=== PATIENT | female | born 1970 | race Caucasian/White ===

== ENCOUNTER 2017-01-09 13:27 | Inpatient (IN) | payer OTHER ==
--- NOTE | ~2017-01-09 | PN ---
Unit #: [id number] #: [id number] Patient: MU NGUYEN [id number] [facility] [address] [place] [address] [id number] I MR#: [id number] NAME: MU NGUYEN. ROOM: P256 Age: 46 Sex: F Admission Date: 01/09/2017 : 1970 Attending Physician: Kandis Madrigal M.D. Admitting Physician: Kandis Madrigal M.D. Primary Care Physician: Generic Doctor Not In System [facility] PROGRESS NOTES DATE OF SERVICE: 01/15/2017 SUBJECTIVE Ms. Nguyen is a 46-year-old white female, who was seen today and chart was reviewed and the case was discussed with the staff. She has been anxious, withdrawn, depressed, and seclusive to herself and reports not feeling good and has been complaining of persistent depressive symptoms with feelings of hopelessness and suicidal ideations and stated that she does not feel safe, "if I want to get out of here today, I will probably end up hanging myself." MENTAL STATUS EXAMINATION Middle-aged white female, who was casually dressed with fair personal hygiene, appears to be in no acute distress or discomfort. She was awake and alert on interaction with intact orientation. Her mood was anxious and depressed with a congruent affect. Her speech was slow and goal directed. She reports having suicidal ideation. Her insight and judgment remain slightly impaired. TREATMENT PLAN 1. We will continue her on her current medications and treatment protocol. We will monitor her response to the medications and make further adjustments as needed. 2. We will continue to follow up. Dictated by... Costa Ambriz/sonja TD: 01/15/2017 15:18 JOB #: [id number] Unit #: [id number] #: [id number] Patient: MU NGUYEN [facility] PROGRESS NOTES X Kandis Madrigal MD PROGRESS NOTE
--- NOTE | ~2017-01-09 | PN ---
Unit #: [id number] #: [id number] Patient: MU NGUYEN [id number] [facility] [address] [place] [address] [id number] I MR#: [id number] NAME: MU NGUYEN ROOM: P256 Age: 46 Sex: F Admission Date: 01/09/2017 : 1970 Attending Physician: Kandis Madrigal M.D. Admitting Physician: Kandis Madrigal M.D. Primary Care Physician: Generic Doctor Not In System [facility] PROGRESS NOTES DATE OF SERVICE: 01/17/2017 SUBJECTIVE Ms. Nguyen is a 46-year-old white female, who was seen today and chart was reviewed and the case was discussed with the staff. She reports in fact that she is showing improvement in her depression and anxiety and she has been compliant with her treatment recommendations and has been taking the medications and tolerating them fairly well. MENTAL STATUS EXAMINATION Middle-aged white female, who was casually dressed with fair personal hygiene, appears to be in no acute distress or discomfort. She was awake and alert on interaction with intact orientation. Her mood was anxious with a congruent affect. She denies any suicidal or homicidal ideation. Her insight and judgment remain slightly impaired. TREATMENT PLAN 1. We will continue her on her current medications and treatment protocol. We will monitor her response to the medications and make further adjustments as needed. 2. We will continue to follow up. Dictated by... Costa Ambriz/sonja TD: 01/17/2017 14:55 JOB #: [id number] [facility] PROGRESS NOTES X Kandis Madrigal MD PROGRESS NOTE
--- NOTE | ~2017-01-09 | PA ---
Unit #: [id number] #: [id number] [facility]: [facility] [id number] [facility] [address] [place] [address] [id number] I MR#: [id number] NAME: MU NGUYEN ROOM: P265 Age: 46 Sex: F Admission Date: 01/09/2017 : 1970 Date of Assessment: 01/09/2017 Attending Physician: Kandis Madrigal M.D. Admitting Physician: Kandis Madrigal M.D. Primary Care Physician: Generic Doctor Not In System PSYCHIATRIC ASSESSMENT DATE OF SERVICE 01/09/2017. IDENTIFYING DATA Ms. Nguyen is a 46-year-old white female, who is known to us from previous encounter, is a resident of [place], [place] and was recently discharged from my care and was self-referred back to the hospital. CHIEF COMPLAINT "I'm feeling anxious and I'm suicidal." HISTORY OF PRESENT ILLNESS Ms. Nguyen is a 46-year-old white female, who was self-referred to the hospital. Upon presentation, she reported increasing depression, anxiety, feelings of hopelessness and helplessness, and suicidal ideation and reports that she has been having thoughts of hanging herself. She reports that she has been diagnosed with cancer and has 30 days to live, though I do not believe that that information is correct; however, she informed me that she was unable to get her prescription filled after getting out of the hospital as pharmacy told her that there was some mess up with her insurance and they are trying to fix it and she reports that she was unable to come to the outpatient treatment program because her transportation never picked her up, and meanwhile, she started decompensating and now reports increasing depression and suicidal ideation, and as such, a recommendation for inpatient level of care was made and the patient was transferred to us. SUBSTANCE ABUSE HISTORY The patient denies any alcohol or drug abuse. PAST PSYCHIATRIC HISTORY The patient has had a [facility], and review of the medical records indicate that she is supposed to be on a combination of Seroquel, Neurontin, Effexor, and Minipress, though appears to be noncompliant with her medications. PAST MEDICAL HISTORY No acute or chronic medical illnesses. ALLERGIES Sulfa and codeine. Unit #: [id number] #: [id number] Patient: MU NGUYEN PERSONAL AND SOCIAL HISTORY A 46-year-old white female, who reports that she is , single, unemployed, and lives with a roommate and has poor social support system. MENTAL STATUS EXAMINATION Middle-aged white female, who was casually dressed with fair personal hygiene, appears to be in no acute distress or discomfort. She was awake and alert on interaction with intact orientation to time, place, and person. Her mood was anxious and depressed with a congruent affect. Her speech was slow and goal directed. She reports having suicidal ideation, but denies any homicidal ideations and also denies any auditory or visual hallucinations. Her insight and judgment remain significantly impaired. DIAGNOSTIC IMPRESSION Psychiatric: Major depressive disorder, recurrent, moderate, without psychotic features; generalized anxiety disorder; and posttraumatic stress disorder. Medical: None. Stressors: Moderate psychosocial stressors. TREATMENT PLAN 1. The patient has presented with a history of mood disorder and has been decompensating and will need inpatient hospitalization for safety and stabilization. We will start her back on her home medications. We will adjust the medications and monitor response. 2. Supportive therapy was provided to the patient. 3. Safe, structured, and nourishing environment will be provided. ESTIMATED LENGTH OF STAY 5 to 7 days. ABILITY TO HELP SELF Limited. WILLINGNESS TO HELP SELF The patient appears to be willing to help self. STRENGTHS 1. Communicative. 2. Cooperative. PROBLEMS 1. Chronic dysphoric symptoms. 2. Poor social support system. DISCHARGE CRITERIA This will be contingent upon the patient's ability to show resolution of her depression and anxiety and her ability to stay safe to herself, particularly after discharge from the hospital. Dictated by... Costa Ambriz/sonja TD: 01/10/2017 15:09 JOB #: [id number] Unit #: [id number] #: [id number] Patient: MU NGUYEN PSYCHIATRIC ASSESSMENT X Kandis Madrigal MD PSYCHIATRIC ASSESSMENT
--- NOTE | ~2017-01-09 | PN ---
Unit #: [id number] #: [id number] Patient: MU NGUYEN [id number] [facility] [address] [place] [address] [id number] I MR#: [id number] NAME: MU NGUYEN ROOM: P256 Age: 46 Sex: F Admission Date: 01/09/2017 : 1970 Attending Physician: Kandis Madrigal M.D. Admitting Physician: Kandis Madrigal M.D. Primary Care Physician: Generic Doctor Not In System [facility] PROGRESS NOTES DATE OF SERVICE: 01/13/2017 SUBJECTIVE Ms. Nguyen is a 46-year-old white female, who was seen today and chart was reviewed and the case was discussed with the staff. She has been anxious, withdrawn, and seclusive to herself and reports not feeling good and has been complaining of persistent anxiety, though she has been taking the medications and tolerating them fairly well. MENTAL STATUS EXAMINATION Middle-aged white female, who was casually dressed with fair personal hygiene, appears to be in no acute distress or discomfort. She was awake and alert on interaction with intact orientation. Her mood was anxious and depressed with a congruent affect. She denies any suicidal or homicidal ideations. Her insight and judgment remain slightly impaired. TREATMENT PLAN 1. We will continue her on her current medications and treatment protocol. We will monitor her response and make further adjustments as needed. 2. We will continue to follow up. Dictated by... Costa Ambriz/sonja TD: 01/14/2017 10:17 JOB #: [id number] [facility] PROGRESS NOTES X Kandis Madrigal MD PROGRESS NOTE
--- NOTE | ~2017-01-09 | PN ---
Unit #: [id number] #: [id number] Patient: MU NGUYEN [id number] [facility] [address] [place] [address] [id number] I MR#: [id number] NAME: MU NGUYEN ROOM: P256 Age: 46 Sex: F Admission Date: 01/09/2017 : 1970 Attending Physician: Kandis Madrigal M.D. Admitting Physician: Kandis Madrigal M.D. Primary Care Physician: Generic Doctor Not In System [facility] PROGRESS NOTES DATE OF SERVICE: 01/12/2017 SUBJECTIVE Ms. Nguyen is a 46-year-old white female who was seen today and chart was reviewed, and case was discussed with the staff. She reports not feeling good and unable to sleep all night long due to back pain and does report some anxiety, depression, mood swings, irritability. Meanwhile, she has been compliant with treatment recommendations and has been taking medications and tolerating them fairly well. MENTAL STATUS EXAMINATION Middle-aged white female who was casually dressed with fair personal hygiene, appears to be in slight distress or discomfort. She was awake and alert on interaction with intact orientation. Her mood was anxious with a congruent affect. She denies any suicidal or homicidal ideations, and also denies any auditory or visual hallucinations. Her insight and judgment remain slightly impaired. TREATMENT PLAN 1. We will continue on her current medications and treatment protocol. We will monitor her response to the medications and make further adjustments as needed. 2. We will continue to follow up. Dictated by... Costa Ambriz/sonja TD: 01/14/2017 06:46 JOB #: [id number] [facility] PROGRESS NOTES X Kandis Madrigal MD PROGRESS NOTE
--- NOTE | ~2017-01-09 | PN ---
Unit #: [id number] #: [id number] Patient: MU NGUYEN [id number] [facility] [address] [place] [address] [id number] I MR#: [id number] NAME: MU NGUYEN. ROOM: P256 Age: 46 Sex: F Admission Date: 01/09/2017 : 1970 Attending Physician: Kandis Madrigal M.D. Admitting Physician: Kandis Madrigal M.D. Primary Care Physician: Generic Doctor Not In System [facility] PROGRESS NOTES DATE January 14, 2017 DISCUSSION Ms. Nguyen is a 46-year-old white female, who was seen today and chart was reviewed and the case was discussed with the staff. She has been anxious, withdrawn, and rather seclusive to herself. Meanwhile, she has been cooperative with the treatment recommendations and she has been taking the medications and tolerating them fairly well with no reported side effects. MENTAL STATUS EXAMINATION Middle-aged white female, who was casually dressed with fair personal hygiene and appears to be in no acute distress or discomfort. She was awake and alert on interaction with intact orientation. Her mood was anxious with a congruent affect. Her speech is slow and goal-directed. She denies any suicidal or homicidal ideations, and also denies any auditory or visual hallucinations. Her insight and judgment remain slightly impaired. TREATMENT PLAN 1. We will continue her on her current medications and treatment protocol, and will monitor her response to the medications, and make further adjustments as needed. 2. We will continue to followup. Dictated by... Costa Ambriz/penelope TD: 01/15/2017 12:40 JOB #: [id number] Unit #: [id number] #: [id number] Patient: MU NGUYEN [facility] PROGRESS NOTES X Kandis Madrigal MD PROGRESS NOTE
--- NOTE | ~2017-01-09 | CO ---
Unit #: [id number] #: [id number] Patient: MU NGUYEN [id number] [place] [address] [id number] I MR#: [id number] NAME: MU NGUYEN ROOM: P256 Age: 46 Sex: F Admission Date: 01/09/2017 : 1970 Attending Physician: Kandis Madrigal M.D. Consultation Date: 01/11/2017 CONSULTATION REPORT SUBJECTIVE Nahed is a 46-year-old with a history of hemorrhoids. She reports that she is having some pain and itching in the area. We have been asked to assess and treat. ASSESSMENT The patient gives a history of hemorrhoids. PLAN Preparation H b.i.d. x5 days. Dictated by... Carmenza Castañeda P.A.-C. for Costa Arredondo/sonja TD: 01/16/2017 02:48 JOB #: [id number] CONSULTATION REPORT X Carmenza Castañeda CONSULTATION REPORT
--- NOTE | ~2017-01-09 | PN ---
Unit #: [id number] #: [id number] Patient: MU NGUYEN [id number] [facility] [address] [place] [address] [id number] I MR#: [id number] NAME: MU NGUYEN ROOM: P256 Age: 46 Sex: F Admission Date: 01/09/2017 : 1970 Attending Physician: Kandis Madrigal M.D. Admitting Physician: Kandis Madrigal M.D. Primary Care Physician: Generic Doctor Not In System [facility] PROGRESS NOTES DATE 01/16/2017 DISCUSSION Ms. Nguyen is a 46-year-old white female who was seen today and chart was reviewed and case was discussed with the staff. She has been anxious, withdrawn though has not shown any agitation, irritability and has been cooperative with treatment recommendation though has been reporting some persistent anxiety and depressive symptoms. MENTAL STATUS EXAMINATION Middle-aged white female who was casually dressed with fair personal hygiene, appears to be in no acute distress or discomfort. She was awake and alert with impaired attention and concentration. Her mood was anxious with congruent affect. She denies any suicidal or homicidal ideations. Her insight and judgement remains slightly impaired. TREATMENT PLAN We will continue her on her current treatment protocol. We will monitor her response and make further adjustments as needed. Dictated by... Costa Ambriz/guillermina TD: 01/18/2017 03:17 JOB #: [id number] [facility] PROGRESS NOTES X Kandis Madrigal MD PROGRESS NOTE
--- NOTE | ~2017-01-09 | PN ---
Unit #: [id number] #: [id number] Patient: MU NGUYEN [id number] [facility] [address] [place] [address] [id number] I MR#: [id number] NAME: MU NGUYEN ROOM: P177 Age: 46 Sex: F Admission Date: 01/09/2017 : 1970 Attending Physician: Kandis Madrigal M.D. Admitting Physician: Kandis Madrigal M.D. Primary Care Physician: Generic Doctor Not In System [facility] PROGRESS NOTES DATE OF SERVICE: 01/10/2017 SUBJECTIVE Ms. Nguyen is a 46-year-old white female who was seen today and chart was reviewed, and case was discussed with the staff. She has been anxious, withdrawn, depressed, and rather seclusive to herself. Meanwhile, she has been cooperative with treatment recommendations and has been taking the medications and tolerating them fairly well. MENTAL STATUS EXAMINATION Middle-aged white female who was casually dressed with fair personal hygiene, appears to be in no acute distress or discomfort. She was awake and alert with intact orientation. Her mood was anxious with a congruent affect. She reports having suicidal ideations, but denies any homicidal ideations. Her insight and judgment remain slightly impaired. TREATMENT PLAN 1. We will continue on her current treatment protocol. We will monitor her response to medications and make further adjustments as needed. 2. We will continue to follow up. Dictated by... Costa Ambriz/sonja TD: 01/12/2017 03:10 JOB #: [id number] [facility] PROGRESS NOTES X Kandis Madrigal MD PROGRESS NOTE
--- NOTE | ~2017-01-09 | PN ---
Unit #: [id number] #: [id number] Patient: MU NGUYEN [id number] [facility] [address] [place] [address] [id number] MR#: [id number] NAME: MU NGUYEN. ROOM: P256 Age: 46 Sex: F Admission Date: 01/09/2017 : 1970 Attending Physician: Kandis Madrigal M.D. Admitting Physician: Kandis Madrigal M.D. Primary Care Physician: Generic Doctor Not In System [facility] PROGRESS NOTES DATE OF SERVICE: 01/11/2017 SUBJECTIVE Ms. Nguyen is a 46-year-old white female who was seen today and chart was reviewed, and case was discussed with the staff. She has been anxious, withdrawn, and rather seclusive to herself and was sitting on her bed reporting significant anxiety and was seen to be quite tense and anxious, and had slurred speech, and reports that she feels jittery and shaky inside. Meanwhile, she has been taking the medications and Thorazine was just added on a p.r.n. basis and she reports that Thorazine helped so really good. MENTAL STATUS EXAMINATION Middle-aged white female who was casually dressed with fair personal hygiene, appears to be in slight distress or discomfort. She was awake and alert on interaction with intact orientation. Her mood was anxious and depressed with a congruent affect. She denies any suicidal or homicidal ideations, and also denies any auditory or visual hallucinations. Her insight and judgment remain slightly impaired. TREATMENT PLAN 1. We will continue on her current medications and treatment protocol. We will monitor her response to the medications and make further adjustments as needed. 2. We will continue to follow up. Dictated by... Costa Ambriz/sondral TD: 01/13/2017 06:42 JOB #: [id number] Unit #: [id number] #: [id number] Patient: MU NGUYEN [facility] PROGRESS NOTES X Kandis Madrigal MD X PROGRESS NOTE
--- NOTE | ~2017-01-09 | HP ---
Unit #: [id number] #: [id number] Patient: MU NGUYEN [id number] [place] [address] [id number] I MR#: [id number] NAME: MU NGUYEN ROOM: P265 Age: 46 Sex: F Admission Date: 01/09/2017 : 1970 Attending Physician: Kandis Madrigal M.D. Admitting Physician: Kandis Madrigal M.D. Primary Care Physician: Generic Doctor Not In System HISTORY AND PHYSICAL The patient is a 46-year-old female admitted to [address] [place] [address] on 01/09/2017 for suicidal ideation. The patient had a recent admission on 12/14/2016 where a full history and physical was completed. That history and physical has been reviewed, no changes need to be made. Dictated by... Radha Love/guillermina TD: 01/10/2017 22:28 JOB #: [id number] HISTORY AND PHYSICAL X TU VGIIL APRN X HISTORY AND PHYSICAL
--- NOTE | ~2017-01-09 | DS ---
Unit #: [id number] #: [id number] Patient: MU NGUYEN [id number] [facility] [address] [place] [address] [id number] I MR#: [id number] NAME: MU NGUYEN. ROOM: P256 Age: 46 Sex: F Admission Date: 01/09/2017 : 1970 Discharge Date: 01/18/2017 Attending Physician: Kandis Madrigal M.D. Primary Care Physician: Generic Doctor Not In System DISCHARGE SUMMARY IDENTIFYING DATA Ms. Nguyen is a 46-year-old white female, who was known to us from previous encounter, was self-referred to the hospital. DISCHARGE DIAGNOSES Psychiatric: Major depressive disorder, recurrent, moderate, without psychotic features; generalized anxiety disorder; posttraumatic stress disorder. Medical: None. Stressors: Moderate psychosocial stressors. HISTORY OF PRESENT ILLNESS Please see initial psychiatric evaluation for details. PAST PSYCHIATRIC HISTORY Please see initial psychiatric evaluation for details. PAST MEDICAL HISTORY Please see initial psychiatric evaluation for details. HOSPITAL COURSE The [facility] and was oriented to the hospital environment. Routine p.r.n. medications were initiated, and she was started back on her home medications and medications were adjusted. The patient was complaining of persistent depression, anxiety, and was closely monitored. She was seen to be polite and pleasant and compliant with treatment recommendation and was taking the medications regularly and was tolerating them fairly well and was able to show a fairly decent and therapeutic response and was willing to continue treatment on an outpatient basis and as such, it was decided that she will be discharged home and will continue treatment on an outpatient basis. DISCHARGE MEDICATIONS Mirapex 0.5 mg at bedtime for restless legs syndrome, Minipress 2 mg at bedtime for PTSD, Effexor XR 75 mg at bedtime for depression, Seroquel 50 mg in the morning and afternoon and Seroquel 600 mg at bedtime for mood disorder, and Thorazine 50 mg every 6 hours as needed for anxiety. DISCHARGE CONDITION Stable. PROGNOSIS Fair. Unit #: [id number] #: [id number] Patient: MU NGUYEN Dictated by... Kandis Madrigal M.D. IAA/modl TD: 01/19/2017 00:54 JOB #: [id number] DISCHARGE SUMMARY X Kandis Madrigal MD DISCHARGE SUMMARY
[2017-01-10 12:38] LABS: BASOPHIL# 0.1 X10e3 (0-0.3); BASOPHIL% 0.5 % (0-2.5); EOSINOPHIL# 0.2 X10e3 (0-0.7); EOSINOPHIL% 1.7 % (0.0-7.0); HEMOGLOBIN 11.1 gm/dL (12.0-16.0); LYMPHOCYTE# 2.7 X10e3 (1.0-3.5); LYMPHOCYTE% 26.6 % (17.0-45.0); MEAN CELL VOLUME 89.1 FL (83-96); MEAN CORPUSCULAR HEMOGLOBIN 29.1 PG (28-34); MEAN CORPUSCULAR HGB CONC 32.6 g/dL (30-36); MEAN PLATELET VOLUME 8.4 FL (6.5-11.5); MONOCYTE# 0.7 X10e3 (0-1.0); NEUTROPHIL# 6.5 X10e3 (1.5-7.1); NEUTROPHIL% 64.2 % (40-75); PLATELET COUNT 374 X10e3 (140-420); RED BLOOD COUNT 3.81 X10e (3.90-5.30); RED CELL DISTRIBUTION WIDTH 16.5 % (11.0-15.5); WHITE BLOOD COUNT 10.2 X10e3 (4.0-10.5)
[2017-01-10 12:41] LABS: DIFF IND NO
[2017-01-10 13:04] LABS: THYROID STIMULATING HORMONE 0.48 uIU/ml (0.34-5.60)
[2017-01-10 13:11] LABS: ALBUMIN SERUM 3.9 g/dL (3.5-5.0); ALKALINE PHOSPHATASE 80 U/L (32-92); ALT (SGPT) 9 U/L (10-40); AST (SGOT) 14 U/L (10-42); BILIRUBIN,TOTAL 0.2 mg/dL (0.2-2.0); BLOOD UREA NITROGEN 12 mg/dL (9-23); BUN/CREATININE RATIO 17.14; CALCIUM SERUM 8.9 mg/dL (8.4-10.2); CARBON DIOXIDE 23 mmol/L (22-31); CHLORIDE 110 mmol/L (100-111); CREATININE SERUM 0.7 mg/dL (0.6-1.4); GLOM FILT RATE Estimated ABOVE60 mL/min (>60); GLUCOSE FASTING 208 mg/dL (70-110); PROTEIN TOTAL SERUM 6.7 g/dL (6.0-8.3); SODIUM 138 mmol/L (135-145)
[2017-01-12 09:42] LABS: URINE APPEARANCE CLOUDY; URINE BILIRUBIN NEG (NEG); URINE BLOOD 2+ (NEG); URINE COLOR YELLOW; URINE GLUCOSE NEG (NEG); URINE KETONE NEG (NEG); URINE LEUKOCYTE ESTERASE 3+ (NEG); URINE NITRATE NEG (NEG); URINE PH 7.5 (5-8); URINE PROTEIN NEG (NEG); URINE SPECIFIC GRAVITY 1.008 (1.003-1.035); URINE UROBILINOGEN 0.2 MG/DL (NEG)
[2017-01-12 09:45] LABS: URINE BACTERIA AUWI 1+ (NEGATIVE); URINE SQUAMOUS EPITHELIAL CELL FEW /[HPF]; UWBCS1 AUWI 50-100 (0-5)
[2017-01-12 10:34] LABS: AMPHETAMINE NEG (NEG); BARBITURATES NEG (NEG); BENZODIAZEPINES NEG (NEG); COCAINE NEG (NEG); MARIJUANA NEG (NEG); OPIATES NEG (NEG); TRICYCLIC ANTIDEPRESSANTS POS (NEG); U METHADONE NEG (NEG)
== END 2017-01-18 16:15 | disposition home or self-care (01) | DRG 885 ==
LOC: P2L 13:27 → P1E 01-10 23:05 → P2L 01-13 17:17 → POF 01-15 15:17 → P2L 01-15 15:29
PROVIDERS: Psychiatry & Neurology Psychiatry
DX: F33.1 Major depressive disorder, recurrent, moderate (principal); M32.9 Systemic lupus erythematosus, unspecified; F41.1 Generalized anxiety disorder; F43.10 Post-traumatic stress disorder, unspecified; K64.9 Unspecified hemorrhoids; F17.200 Nicotine dependence, unspecified, uncomplicated; J44.9 Chronic obstructive pulmonary disease, unspecified
CPT/HCPCS: 80053; 80307; 81003; 84439; 84443; 84703; 85025

== ENCOUNTER 2017-02-11 22:07 | Inpatient (IN) | payer OTHER ==
--- NOTE | ~2017-02-11 | PN ---
Unit #: [id number] #: [id number] Patient: MU NGUYEN [id number] [facility] [address] [place] [address] [id number] I MR#: [id number] NAME: MU NGUYEN. ROOM: P258 Age: 47 Sex: F Admission Date: 02/11/2017 : 1970 Attending Physician: Kandis Madrigal M.D. Admitting Physician: Kandis Madrigal M.D. Primary Care Physician: Primary Care Physician Mague [facility] PROGRESS NOTES DATE OF SERVICE: 02/22/2017 SUBJECTIVE Ms. Nguyen is a 47-year-old white female who was seen today and chart was reviewed, and case was discussed with the staff. She remains anxious, withdrawn, depressed, and rather seclusive to herself. Meanwhile, she has been cooperative with treatment recommendations and has been taking the medications and tolerating them fairly well with no reported side effects. MENTAL STATUS EXAMINATION Middle-aged white female who was casually dressed with fair personal hygiene, appears to be in no acute distress or discomfort. She was awake and alert on interaction with intact orientation. Her mood was anxious and depressed with a congruent affect. Her speech was slow and goal directed. She denies any suicidal or homicidal ideation, and also denies any auditory or visual hallucinations. Her insight and judgment remain slightly impaired. TREATMENT PLAN 1. We will continue her on her current medications and treatment protocol. We will monitor her response to the medications and make further adjustments as needed. 2. We will continue to follow up. Dictated by... Costa Ambriz/sonja TD: 02/22/2017 18:07 JOB #: [id number] Unit #: [id number] #: [id number] Patient: MU NGUYEN [facility] PROGRESS NOTES Page 1 of 1 X Kandis Madrigal MD PROGRESS NOTE
--- NOTE | ~2017-02-11 | PN ---
Unit #: [id number] #: [id number] Patient: MU NGUYEN [id number] [facility] [address] [place] [address] [id number] MR#: [id number] NAME: MU NGUYEN ROOM: P258 Age: 47 Sex: F Admission Date: 02/11/2017 : 1970 Attending Physician: Kandis Madrigal M.D. Admitting Physician: Kandis Madrigal M.D. Primary Care Physician: Primary Care Physician Mague SHAVER PROGRESS NOTES DATE OF SERVICE 02/16/2017 DISCUSSION Ms. Nguyen is a 47-year-old white female who was seen today. Chart was reviewed and case was discussed with staff. She was not feeling good and her mother is dying in the hospital, and they have been asking for family members to come and say goodbye, and her sister is making arrangements even though mother has not yet, and when asked if she wants to go and pay her respect and say goodbye to her mother, she stated that she does not want to do that. I am not sure that all of that information is true or not, but the patient surely has been using that a lot, a trigger to her persistent depression, anxiety, and feeling unsafe outside of the hospital environment, and so needing further and continued inpatient stay. She states that she would rather choose to stay here than go to the hospital and pay her last visit to her mother. MENTAL STATUS EXAMINATION Middle-aged white female who is casually dressed with fair personal hygiene, appears to be in no acute distress or discomfort. The patient was awake and alert on interaction with intact orientation. Her mood is anxious and depressed with congruent affect. Her speech is slow and goal-directed. She reports having suicidal ideations and denies any homicidal ideations. Her insight and judgment remain significantly impaired. TREATMENT PLAN 1. We will continue her on her current medications and treatment protocol and maintain on her current level of precautions. 2. We will continue to follow up. Dictated by... Costa Ambriz/alyce TD: 02/17/2017 14:16 JOB #: [id number] Unit #: [id number] #: [id number] Patient: MU NGUYEN PROGRESS NOTES Page 1 of 1 X Kandis Madrigal MD X PROGRESS NOTE
--- NOTE | ~2017-02-11 | PN ---
Unit #: [id number] #: [id number] Patient: MU NGUYEN [id number] [facility] [address] [place] [address] [id number] I MR#: [id number] NAME: MU NGUYEN ROOM: P258 Age: 47 Sex: F Admission Date: 02/11/2017 : 1970 Attending Physician: Kandis Madrigal M.D. Admitting Physician: Kandis Madrigal M.D. Primary Care Physician: Primary Care Physician Mague SHVAER PROGRESS NOTES DATE 02/13/2017 DISCUSSION Ms. Nguyen is a 47-year-old white female who was seen today and chart was reviewed and case was discussed with the staff. She was seen to be rather upset as she has been finally able to get up and talk to me stating that she left here she went to [facility] and saw a nurse practitioner who on the very first visit changed all of her medication and took most of her medication and she told them that it took her some time to get her medication regulated in the hospital but that she would not listen to her and that she told the prescriber that she given the anxiety in the office by taking her off all of her medication and asked if she needs to talk to and she stated that she knows she does not and that she will just leave note for her and since her medication has been changed, she stated that she has been decompensating and wants herself to be back on the medication she was on previously hospitalization as it took her quite a period of time to get her medications regulated. She was finally able to show a therapeutic response. She also has reported that now once she gets out of her she just wants to follow up as on outpatient basis and does not want to go back to [facility]. MENTAL STATUS EXAMINATION Middle-aged white female who was casually dressed with fair personal hygiene, appears to be in no acute distress or discomfort. She was awake and alert on interaction with intact orientation. Her mood was anxious and depressed with congruent affect. She denies any current suicidal or homicidal ideations. Her insight and judgement remains significantly impaired. TREATMENT PLAN 1. We will continue her on her current medications and treatment protocol. We will monitor her response to the medication and make further adjustments as needed. 2. We will continue to follow up. Dictated by... Unit #: [id number] #: [id number] Patient: LEXEMILMU ROWLAND M.D. IAA/guillermina TD: 02/15/2017 02:18 JOB #: [id number] CHHAYA PROGRESS NOTES Page 1 of 1 X Kandis Madrigal MD X PROGRESS NOTE
--- NOTE | ~2017-02-11 | PN ---
Unit #: [id number] #: [id number] Patient: MU NGUYEN [id number] [facility] [address] [place] [address] [id number] I MR#: [id number] NAME: MU NGUYEN. ROOM: P258 Age: 47 Sex: F Admission Date: 02/11/2017 : 1970 Attending Physician: Kandis Madrigal M.D. Admitting Physician: Kandis Madrigal M.D. Primary Care Physician: Primary Care Physician Mague DA SILVA NOTES DATE 02/14/2017 DISCUSSION Ms. Nguyen is a 47-year-old white female who was seen today and chart was reviewed and case was discussed with the staff. She has been anxious, withdrawn though has not shown any agitation, irritability and seemed to be tearful stating that her mother is on life support and she is in the hospital and she is very worried about it and she cannot handle her mother leaving her and that is the last one left in her life and she does know what she will do if her mother is gone and is actually voicing suicidal thoughts and feelings of hopelessness and seemed to be emotionally unstable. Meanwhile, she has been taking medications and tolerating them fairly well with no reported side effects. MENTAL STATUS EXAMINATION Middle-aged white female who was casually dressed with fair personal hygiene, appears to be in no acute distress or discomfort. She was awake and alert on interaction with intact orientation. Her mood was anxious with congruent affect. She reports having suicidal ideation but denies any homicidal ideation. Her insight and judgement remains slightly impaired. TREATMENT PLAN 1. We will continue her on her current treatment protocol. We will monitor her response and make further adjustments as needed. 2. We will continue to follow up. Dictated by... Costa Ambriz/guillermina TD: 02/15/2017 22:24 JOB #: [id number] Unit #: [id number] #: [id number] Patient: MU NGUYEN CHHAYA PROGRESS NOTES Page 1 of 1 X Kandis Madrigal A MD X PROGRESS NOTE
--- NOTE | ~2017-02-11 | PN ---
Unit #: [id number] #: [id number] Patient: MU NGUYEN [id number] [facility] [address] [place] [address] [id number] I MR#: [id number] NAME: MU NGUYEN. ROOM: P258 Age: 47 Sex: F Admission Date: 02/11/2017 : 1970 Attending Physician: Kandis Madrigal M.D. Admitting Physician: Kandis Madrigal M.D. Primary Care Physician: Primary Care Physician Mague DA SILVA NOTES DATE 02/18/2017 DISCUSSION Ms. Nguyen is a 47-year-old white female who was seen today and chart was reviewed and case was discussed with the staff. She has been anxious, withdrawn though has not shown any agitation, irritability or behavioral problems and has been cooperative with treatment recommendations as she has been taking medications and has been complaining of persistent anxiety, depression and suicidal thoughts. MENTAL STATUS EXAMINATION Middle-aged white female who was casually dressed with fair personal hygiene, appears to be in no acute distress or discomfort. She was awake and alert on interaction with intact orientation. Her mood was anxious with congruent affect. She reports having suicidal ideation but denies any homicidal ideation. Her insight and judgement remains slightly impaired. TREATMENT PLAN 1. We will continue her on her current medications and treatment protocol. We will monitor her response to the medications and make further adjustments as needed. 2. We will continue to follow up. Dictated by... Costa Ambriz/guillermina TD: 02/21/2017 21:30 JOB #: [id number] Unit #: [id number] #: [id number] Patient: MU NGUYEN CHHAYA PROGRESS NOTES Page 1 of 1 X Kandis Madrigal MD PROGRESS NOTE
--- NOTE | ~2017-02-11 | PN ---
Unit #: [id number] #: [id number] Patient: MU SMITH [id number] [facility] [address] [place] [address] [id number] MR#: [id number] NAME: MU SMITH. ROOM: P258 Age: 47 Sex: F Admission Date: 02/11/2017 : 1970 Attending Physician: Kandis Madrigal M.D. Admitting Physician: Kandis Madrigal M.D. Primary Care Physician: Primary Care Physician Mague SHAVER PROGRESS NOTES DATE 02/15/2017 DISCUSSION Ms. Smith is a 47-year-old white female who was seen today and chart was reviewed and case was discussed with the staff. She has been anxious, withdrawn and rather seclusive to herself. Meanwhile, she has been cooperative with treatment recommendations and has been taking medications and tolerating them fairly well with no reported side effects. MENTAL STATUS EXAMINATION Middle-aged white female who was casually dressed with fair personal hygiene and appears to be in no acute distress or discomfort. She was awake and alert on interaction with intact orientation. Her mood was anxious with congruent affect. She denies any suicidal or homicidal ideation. Her insight and judgement remains slightly impaired. TREATMENT PLAN 1. We will continue on current treatment protocol. Will monitor her response to the medications and make further adjustments as needed. 2. Will continue to follow up. Dictated by... Kandis Madrigal M.D. IAA/albina TD: 02/16/2017 22:36 JOB #: [id number] Unit #: [id number] #: [id number] Patient: MU SMITH KIANAELI PROGRESS NOTES Page 1 of 1 X Kandis Madrigal MD PROGRESS NOTE
--- NOTE | ~2017-02-11 | PN ---
Unit #: [id number] #: [id number] Patient: MU NGUYEN [id number] [facility] [address] [place] [address] [id number] I MR#: [id number] NAME: MU NGUYEN. ROOM: P258 Age: 47 Sex: F Admission Date: 02/11/2017 : 1970 Attending Physician: Kandis Madrigal M.D. Admitting Physician: Kandis Madrigal M.D. Primary Care Physician: Primary Care Physician Mague SHAVER PROGRESS NOTES DATE 02/21/2017 DISCUSSION Mu Nguyen is a 47-year-old female seen on 02/21/2017. The patient interviewed, chart reviewed. Obtained information from nursing staff. The patient reported that she is still having suicidal ideation, flat affect, sad dysphoric mood. The patient was unable to contract for safety. Complete review of systems unremarkable. MENTAL STATUS EXAMINATION General appearance, the patient dressed casually. Attention span and concentration fair. Oriented to place and person. Mood and affect sad, dysphoric. Flat affect, speech monotone. Thought process concrete. The patient reported having suicidal ideation unable to contract for safety. Denied any homicidal ideation. Recent and remote memory poor. Insight and judgement poor. DIAGNOSES Major depressive disorder recurrent. Anxiety disorder NOS ASSESSMENT/PLAN Advise to continue with current medication and therapeutic protocol. If needed consider further adjustment of medication. Dictated by... Costa Gautam/guillermina TD: 02/24/2017 03:40 JOB #: [id number] Unit #: [id number] #: [id number] Patient: MU NGUYEN PEAELI PROGRESS NOTES Page 1 of 1 X Ti Perales MD PROGRESS NOTE
--- NOTE | ~2017-02-11 | PN ---
Unit #: [id number] #: [id number] Patient: MU NGUYEN [id number] [facility] [address] [place] [address] [id number] MR#: [id number] NAME: MU NGUYEN. ROOM: P258 Age: 47 Sex: F Admission Date: 02/11/2017 : 1970 Attending Physician: Kandis Madrigal M.D. Admitting Physician: Kandis Madrigal M.D. Primary Care Physician: Primary Care Physician Mague SHAVER PROGRESS NOTES DATE 02/19/2017 DISCUSSION Ms. Nguyen is a 47-year-old white female who was seen today and chart was reviewed and case was discussed with the staff. She has been anxious, withdrawn and rather seclusive to herself. Meanwhile, she has been cooperative with treatment recommendations and has been taking medications and tolerating them fairly well with no reported side effects. MENTAL STATUS EXAMINATION Middle-aged white female who was casually dressed with fair personal hygiene and appears to be in no acute distress or discomfort. She was awake and alert on interaction with intact orientation. Her mood was anxious and depressed with congruent affect. She denies any suicidal or homicidal ideations. Her insight and judgement remains slightly impaired. TREATMENT PLAN 1. Will continue on current medications and treatment protocol. Will monitor her response to the medications and make further adjustments as needed. 2. Will continue to follow up. Dictated by... Costa Ambriz/albina TD: 02/22/2017 09:02 JOB #: [id number] Unit #: [id number] #: [id number] Patient: MU NGUYEN CHHAYA PROGRESS NOTES Page 1 of 1 X Kandis Madrigal MD PROGRESS NOTE
--- NOTE | ~2017-02-11 | DS ---
Unit #: [id number] #: [id number] Patient: MU NGUYEN [id number] [facility] [address] [place] [address] [id number] I MR#: [id number] NAME: MU NGUYEN ROOM: P258 Age: 47 Sex: F Admission Date: 02/11/2017 : 1970 Discharge Date: 02/23/2017 Attending Physician: Kandis Madrigal M.D. Primary Care Physician: Primary Care Physician No DISCHARGE SUMMARY IDENTIFYING DATA Ms. Nguyen is a 47-year-old, white female, who is known to us from previous encounter, and is a resident of [place], [place] and was self-referred to the hospital. DISCHARGE DIAGNOSES Psychiatric: Major depressive disorder, recurrent, moderate, without psychotic features. Medical: None. Stressors: Moderate psychosocial stressors. HISTORY OF PRESENT ILLNESS Please see initial psychiatric evaluation for details. PAST PSYCHIATRIC HISTORY Please see initial psychiatric evaluation for details. PAST MEDICAL HISTORY Please see initial psychiatric evaluation for details. HOSPITAL COURSE The patient was admitted to the adult psychiatric unit at [facility] and was oriented to the hospital environment. Routine p.r.n. medications were initiated. She was started back on her home medications. Medications were adjusted as the patient was constantly voicing suicidal thoughts. Meanwhile, she was taking the medications regularly and was tolerating them fairly well and was constantly voicing suicidal thoughts with multiple triggers and then she stated that her mother is in ICU and she is dying and doctors have already asked family members to come and say goodbye and that she does not want to go and say goodbye because she cannot handle it and she would rather stay here and that she was feeling increasingly depressed and suicidal and as such, medications were maintained and adjusted and she was kept on the suicide watch with a slow and gradual response to medications followed by which, it was decided that she will be discharged home. We will continue treatment on an outpatient basis. DISCHARGE MEDICATIONS Seroquel 50 mg in the morning and in the afternoon, and 600 mg at bedtime, Neurontin 1200 mg t.i.d. for anxiety, and Thorazine 50 mg every 6 hours as needed for anxiety, Mirapex 0.5 mg at bedtime for restless legs, Minipress 2 mg at bedtime for PTSD, and Effexor 75 mg a day for depression. DISCHARGE CONDITION Unit #: [id number] #: [id number] Patient: MU NGUYEN Srinivas Stable. PROGNOSIS Fair. Dictated by... Costa Ambriz/sonja TD: 02/23/2017 08:06 JOB #: [id number] DISCHARGE SUMMARY Page 1 of 1 X Kandis Madrigal MD X DISCHARGE SUMMARY
--- NOTE | ~2017-02-11 | PN ---
Unit #: [id number] #: [id number] Patient: MU NGUYEN [id number] [facility] [address] [place] [address] [id number] I MR#: [id number] NAME: MU NGUYEN. ROOM: P258 Age: 47 Sex: F Admission Date: 02/11/2017 : 1970 Attending Physician: Kandis Madrigal M.D. Admitting Physician: Kandis Madrigal M.D. Primary Care Physician: Mague Primary Care Physician [facility] PROGRESS NOTES DATE February 17, 2017 DISCUSSION Ms. Nguyen is a 47-year-old, white female who was seen today and chart was reviewed. Her case was discussed with the staff. She was sitting (1) , shaking, telling me she has been having significant and increasing anxiety. Meanwhile, she has been taking the medications and tolerating them fairly well with no reported side effects. MENTAL STATUS EXAMINATION Middle age, white female who was casually dressed with a fair personal hygiene and appears to be in no acute distress or discomfort. She was awake and alert on interaction with intact orientation. Her mood is anxious and depressed with a congruent affect. She reports having suicidal ideation, but denies any homicidal ideation. Her insight and judgement remain significantly impaired. TREATMENT PLAN 1. We will continue on current medications and treatment protocol. Will monitor her response to the medications and make further adjustments as needed. 2. We will continue to follow up. Dictated by... Costa Ambriz/asia TD: 02/19/2017 08:55 JOB #: [id number] Unit #: [id number] #: [id number] Patient: MU NGUYEN PROGRESS NOTES Page 1 of 1 X Kandis Madrigal MD PROGRESS NOTE
--- NOTE | ~2017-02-11 | A ---
[facility] DATE: 02/22/17 Patient: MU NGUYEN Physician: AFAIRF Address: [address] [place] [address] Room/Bed: [address], Zip: [place] [address] Admit Date: 02/11/17 Date of : [birth year] Height: 5 5 Weight: 159 72.19896 NUTRITIONAL ASSESSMENT: REASON: LENGTH OF STAY PATIENT ADMITTED FOR DEPRESSION PMH: HTN, COPD, LUPUS Anthropometrics: HT: 5'5", WT: 160#, BMI: 26.6 Labs: 02/12/17- GLU: 139 Meds: THORAZINE, ZOFRAN, NEURONTIN, SEROQUEL, EFFEXOR-XR Assessment: PATIENT IS A 47 Y/O FEMALE ADMITTED FOR DEPRESSION. PATIENT HAS A HX OF MULTIPLE INPATIENT PSYCH HOSPITALIZATIONS AT THIS FACILITY. PATIENT IS CURRENTLY UNEMPLOYED, LIVES WITH A ROOMMATE, SMOKES 1 1/2 PPD, AND DENIES SUBSTANCE ABUSE. UPON ADMIT PATIENT STATED A POOR APPETITE WITH NO WEIGHT CHANGES, A CHANGE IN MEDS HAS CAUSED HER TO FEEL UNSTABLE, AND SHE HAS MULTIPLE LIFE STRESSORS. WEIGHT HX PER [employer] SHOWS NO SIGNIFICANT WEIGHT CHANGES OVER LAST 2 MONTHS. NURSING REPORTS CONSISTENTLY GOOD PO INTAKES. THERE ARE NO SKIN OR GI ISSUES NOTED ATT. PATIENT IS ON A REGULAR DIET WITH LARGE PORTION ENTREES, AND SHE DID NOT SCORE ANY NUTRITIONAL RISK POINTS. Dx: NO NUTRITION DX Intervention: REGULAR DIET, LARGE PORTION ENTREES, MEDS PER MD, PSYCH Monitoring, Evaluation and Goals: 1. ADEQUATE PO INTAKES >50% OF MEALS 2. PREVENT, CORRECT MICRO/MACRO NUTRIENT DEFICIENCIES MONITOR: WEIGHTS, LABS, PO/FLUID INTAKES Recommendations: 1. CONTINUE REGULAR DIET WITH LARGE PORTION ENTREES TOLERATED 2. ENCOURAGE ADEQUATE PO AND FLUID INTAKES RD TO F/U PER PROTOCOL AND PRN R/T PATIENT NOT AT NUTRITIONAL RISK ATT Respectfully, [facility] DATE: 02/22/17 Patient: MU NGUYEN Physician: AFAIRF Address: [address] [place] [address] Room/Bed: [address], Zip: [place] [address] Admit Date: 02/11/17 Date of : [birth year] Height: 5 5 Weight: [phone], LD [facility] cc: client file
--- NOTE | ~2017-02-11 | PN ---
Unit #: [id number] #: [id number] Patient: MU NGUYEN [id number] [facility] [address] [place] [address] [id number] MR#: [id number] NAME: MU NGUYEN. ROOM: P258 Age: 47 Sex: F Admission Date: 02/11/2017 : 1970 Attending Physician: Kandis Madrigal M.D. Admitting Physician: Kandis Madrigal M.D. Primary Care Physician: Primary Care Physician Mague SHAVER PROGRESS NOTES DATE 02/20/2017 DISCUSSION Nahed Nguyen is a 47-year-old white female seen on 02/20/2017 seen on 2 Germaine. The patient reported still mood sad depressed but denied any suicidal ideation. Compliant with medication. Vital signs 97.7, 84, 106/73. The patient denied any other concerns but still isolative guarded. Complete review of systems unremarkable. MENTAL STATUS EXAMINATION General appearance, the patient dressed casually. Attention span and concentration fair. Oriented to place and person. Mood and affect sad, depressed. Speech monotone. Thought process concrete. The patient denied any thoughts of harming self or others but sad depressed, hopelessness, seclusive, isolative. Recent and remote memory poor. Insight and judgement poor. DIAGNOSES Major depressive disorder recurrent severe. ASSESSMENT/PLAN Advise to continue with current combination of Neurontin, Seroquel, Mirapex, Minipress, Effexor, Seroquel. If needed consider further adjustment of medication. Dictated by... Costa Gautam/guillermina TD: 02/23/2017 04:14 JOB #: [id number] Unit #: [id number] #: [id number] Patient: MU NGUYEN PEAELI PROGRESS NOTES Page 1 of 1 X Ti Perales MD X PROGRESS NOTE
--- NOTE | ~2017-02-11 | HP ---
Unit #: [id number] #: [id number] Patient: MU NGUYEN [id number] [place] [address] [id number] I MR#: [id number] NAME: MU NGUYEN. ROOM: P258 Age: 47 Sex: F Admission Date: 02/11/2017 : 1970 Attending Physician: Kandis Madrigal M.D. Admitting Physician: Kandis Madrigal M.D. Primary Care Physician: Primary Care Physician No HISTORY AND PHYSICAL HISTORY OF PRESENT ILLNESS Mu is a 47 year old admitted to [address] [place] [address] with depression. PAST MEDICAL HISTORY 1. High blood pressure. 2. Lupus. 3. COPD. PAST SURGICAL HISTORY Nothing reported. ALLERGIES Sulfa, codeine. SOCIAL HISTORY Smokes 1 pack per day. Denies alcohol and illicit drug use. FAMILY HISTORY Medically noncontributory. REVIEW OF SYSTEMS CONSTITUTIONAL: No fever or chills. HEENT: Denies any sore throat, ear pain or runny nose. CARDIOVASCULAR: Denies chest pain, irregular heart rhythm or palpitations. CHEST: Denies shortness of breath or cough. No hemoptysis. GASTROINTESTINAL: Denies nausea, vomiting, diarrhea or chronic constipation. ENDOCRINE: Denies history of increased thirst or urination. No recent significant weight loss or gain. GENITOURINARY: Denies dysuria, frequency, or hematuria. SKIN: Denies any rashes. HEMATOLOGIC: Denies history of increased bleeding or bruising. MUSCULOSKELETAL: Denies any hot, swollen joints. No generalized muscle pain. NEUROLOGIC: Denies problems with vision or speech. No frequent, severe headaches. No numbness, tingling or weakness in any extremities. Denies loss of bladder or bowel control. CURRENT MEDICATIONS 1. Seroquel 50 mg b.i.d., 600 mg q.h.s. 2. Mirapex 0.5 mg q.h.s. 3. Minipress 2 mg q.h.s. 4. Effexor XR 75 mg q.h.s. Unit #: [id number] #: [id number] Patient: MU NGUYEN 5. Neurontin 600 mg b.i.d. 6. Nicotine patch 21 mg daily. 7. Thorazine p.r.n. 8. Milk of Magnesia p.r.n. 9. Maalox p.r.n. 10. Tylenol p.r.n. PHYSICAL EXAMINATION GENERAL: Alert, well-nourished, in no apparent distress. VITAL SIGNS: Blood pressure 146/64, heart rate 80, respirations 16, temperature 98.6. WEIGHT: 160. HEIGHT: 5 feet 5 inches. SKIN: Warm and dry without rash or lesion. HEENT: Normocephalic. TMs not viewed. Oral and nasal passages clear. Conjunctivae clear. PERRLA. EOMs intact. NECK: Supple without lymphadenopathy or thyromegaly. HEART: Regular rate and rhythm without murmur. LUNGS: Clear. ABDOMEN: Soft, nontender. : Not done. EXTREMITIES: No evidence of cyanosis, clubbing or edema. Moves all without focal deficit. NEUROLOGICAL: Grossly within normal limits. Cranial Nerves: II: Visual veronica are intact. III, IV AND : Extraocular movements are intact. Pupils are equal, round and reactive to light. V: Facial sensation is grossly normal. VII: Facial movements and expression are normal. VIII: Auditory acuity grossly intact. IX, X: Uvula is midline. Phonation is normal. XI: Patient shrugs shoulders and turns head normally. XII: Tongue protrudes in the midline. Sensory and Motor Function: Sensory and motor sensation is grossly normal. Motor: moves all extremities well. Coordination: Gait is normal. Deep Tendon Reflexes: Intact. IMPRESSION Psychiatric admission. RECOMMENDATIONS PSYCHIATRIC: Per psychiatrist. MEDICAL: See no contraindications to participate in facility's activities. MEDICAL PROGNOSIS Good. MEDICAL CONDITION Stable. Dictated by... Carmenza Castañeda P.A.-C. for Costa Arredondo/albina TD: 02/12/2017 21:59 Unit #: [id number] #: [id number] Patient: MU NGUYEN JOB #: [id number] HISTORY AND PHYSICAL Page 1 of 1 X Carmenza Castañeda HISTORY AND PHYSICAL
--- NOTE | ~2017-02-11 | PA ---
Unit #: [id number] #: [id number] [facility]: [facility] [id number] [facility] [place] [address] [id number] I MR#: [id number] NAME: MU NGUYEN ROOM: P258 Age: 47 Sex: F Admission Date: 02/11/2017 : 1970 Date of Assessment: 02/12/2017 Attending Physician: Kandis Madrigal M.D. Admitting Physician: Kandis Madrigal M.D. PSYCHIATRIC ASSESSMENT DATE OF SERVICE 02/12/2017. IDENTIFYING DATA Ms. Nguyen is a 47-year-old white female, who is known to us from previous encounter, and is a resident of [place], [place], and was self-referred to the hospital on a voluntary basis. CHIEF COMPLAINT "I'm unstable. I don't trust myself." HISTORY OF PRESENT ILLNESS Ms. Nguyen is a 47-year-old white female with history of mood disorder, who is known to us from previous encounter, was self-referred to the hospital reporting that her mother might be dying within the next 24 hours from cancer and that her mother had to be revived last day because she was not breathing and reports that since the mother's cancer diagnosed that she has only been able to spend 10 minutes with her due to strained relationship with other family members and reports she was contacted today also about her father and finding out that his body was not handled the correct way postmortem and the patient reports medication changes since [facility] and that she does not feel stable and does report increasing depression, anxiety, irritability, restlessness, disturbed sleep, feelings of hopelessness and helplessness, and suicidal ideations and as such, recommendation for inpatient level of care was made. SUBSTANCE ABUSE HISTORY The patient denies any history of alcohol or drug abuse. PAST PSYCHIATRIC HISTORY The patient has had history of multiple inpatient [facility] and currently is active in [facility] on an outpatient basis and has been diagnosed and treated for mood disorder and is on a combination of psychotropic medication and reports that the medications were recently adjusted by [facility] and she has been decompensating. MEDICAL HISTORY The patient's medical history is insignificant. ALLERGIES Codeine and Bactrim. Unit #: [id number] #: [id number] Patient: MU NGUYEN PERSONAL AND SOCIAL HISTORY A 47-year-old white female, who reports that she is single and lives at home with a roommate and has poor social support system. MENTAL STATUS EXAMINATION Middle-aged white female who was casually dressed with fair personal hygiene, appears to be in no acute distress or discomfort. She was awake and alert on interaction with intact orientation to time, place, and person. Her mood was anxious and depressed with a congruent affect. Her speech was slow and goal directed. She reports having suicidal ideation, but denies any homicidal ideations, and also denies any auditory or visual hallucinations. Her insight and judgment remain significantly impaired. DIAGNOSTIC IMPRESSION Psychiatric: Major depressive disorder, recurrent, moderate, without psychotic features. Medical: None. Stressors: Moderate psychosocial stressors. TREATMENT PLAN 1. The patient has presented with history of mood disorder and has been decompensating and will need inpatient hospitalization for safety and stabilization. We will start her back on her home medications. We will adjust the medications and monitor response. 2. Supportive therapy was provided to the patient. 3. Safe, structured, and nourishing environment will be provided. ESTIMATED LENGTH OF STAY 4 to 5 days. ABILITY TO HELP SELF Limited. WILLINGNESS TO HELP SELF The patient appears to be willing to help self. STRENGTHS 1. Communicative. 2. Cooperative. PROBLEMS 1. Chronic dysphoric symptoms. 2. Poor social support system. DISCHARGE CRITERIA This will be contingent upon the patient's ability to show resolution of her depression and anxiety and her ability to stay safe to herself, particularly after discharge from the hospital. Dictated by... Kandis Madrigal M.D. ABRAN/sonja TD: 02/12/2017 07:20 JOB #: [id number] Unit #: [id number] #: [id number] Patient: MU NGUYEN PSYCHIATRIC ASSESSMENT Page 1 of 1 X Kandis Madrigal MD PSYCHIATRIC ASSESSMENT
[2017-02-12 09:38] LABS: BASOPHIL# 0.1 X10e3 (0-0.3); BASOPHIL% 0.8 % (0-2.5); EOSINOPHIL# 0.2 X10e3 (0-0.7); EOSINOPHIL% 1.6 % (0.0-7.0); HEMATOCRIT 38.3 % (35.0-45.0); HEMOGLOBIN 12.5 gm/dL (12.0-16.0); LYMPHOCYTE% 17.8 % (17.0-45.0); MEAN CELL VOLUME 87.8 FL (83-96); MEAN CORPUSCULAR HEMOGLOBIN 28.7 PG (28-34); MEAN CORPUSCULAR HGB CONC 32.7 g/dL (30-36); MEAN PLATELET VOLUME 8.2 FL (6.5-11.5); MONOCYTE# 0.8 X10e3 (0-1.0); MONOCYTE% 7.7 % (3.0-12.0); NEUTROPHIL% 72.1 % (40-75); PLATELET COUNT 347 X10e3 (140-420); RED BLOOD COUNT 4.36 X10e (3.90-5.30); RED CELL DISTRIBUTION WIDTH 15.4 % (11.0-15.5)
[2017-02-12 09:39] LABS: DIFF IND NO
[2017-02-12 09:40] LABS: URINE APPEARANCE TURBID; URINE BILIRUBIN NEG (NEG); URINE BLOOD NEG (NEG); URINE COLOR DK YELLOW; URINE GLUCOSE NEG (NEG); URINE KETONE 1+ (NEG); URINE LEUKOCYTE ESTERASE 2+ (NEG); URINE NITRATE NEG (NEG); URINE PH 5.5 (5-8); URINE PROTEIN 1+ (NEG); URINE SPECIFIC GRAVITY 1.026 (1.003-1.035)
[2017-02-12 09:45] LABS: URINE BACTERIA AUWI 3+ (NEGATIVE); URINE SQUAMOUS EPITHELIAL CELL MANY /[HPF]; UWBCS1 AUWI 50-100 (0-5)
[2017-02-12 10:04] LABS: THYROID STIMULATING HORMONE 0.56 uIU/ml (0.34-5.60)
[2017-02-12 10:11] LABS: FREE THYROXIN (T4) 1.09 ng/dL (0.58-1.64)
[2017-02-12 10:24] LABS: U HYALINE CASTS AUWI 0-2 /[LPF]; URBCS1 AUWI NEG /[HPF] (0-2); URINE AMORPHOUS SEDIMENT AMORP URATES
[2017-02-12 10:39] LABS: ALBUMIN SERUM 4.2 g/dL (3.5-5.0); BILIRUBIN,TOTAL 0.8 mg/dL (0.2-2.0); BUN/CREATININE RATIO 21.66; CALCIUM SERUM 9.2 mg/dL (8.4-10.2); CREATININE SERUM 0.6 mg/dL (0.6-1.4); GLOM FILT RATE Estimated 108.5 mL/min (>60); POTASSIUM 3.8 mmol/L (3.5-5.1); PROTEIN TOTAL SERUM 7.3 g/dL (6.0-8.3)
[2017-02-12 10:50] LABS: AMPHETAMINE NEG (NEG); BARBITURATES NEG (NEG); BENZODIAZEPINES POS (NEG); COCAINE NEG (NEG); MARIJUANA NEG (NEG); OPIATES NEG (NEG); TRICYCLIC ANTIDEPRESSANTS POS (NEG); U METHADONE NEG (NEG)
== END 2017-02-23 13:00 | disposition home or self-care (01) | DRG 885 ==
LOC: P2L 22:07
PROVIDERS: Psychiatry & Neurology Psychiatry
DX: F33.1 Major depressive disorder, recurrent, moderate (principal); M32.9 Systemic lupus erythematosus, unspecified; I10 Essential (primary) hypertension; J44.9 Chronic obstructive pulmonary disease, unspecified; Z88.2 Allergy status to sulfonamides; F17.210 Nicotine dependence, cigarettes, uncomplicated
CPT/HCPCS: 80053; 80307; 81003; 84439; 84443; 84703; 85025

== ENCOUNTER 2017-03-12 12:00 | Inpatient (IN) | payer OTHER ==
--- NOTE | ~2017-03-12 | PN ---
Unit #: [id number] #: [id number] Patient: MU NGUYEN [id number] [facility] [address] [place] [address] [id number] I MR#: [id number] NAME: MU NGUYEN. ROOM: P130 Age: 47 Sex: F Admission Date: 03/12/2017 : 1970 Attending Physician: Kandis Madrigal M.D. Admitting Physician: Kandis Madrigal M.D. Primary Care Physician: Primary Care Physician Mague DA SILVA NOTES DATE 03/13/2017 DISCUSSION Ms. Nguyen is a 47-year-old white female who was seen today and chart was reviewed. Her case was discussed with the staff. She has been anxious, withdrawn, and rather seclusive to herself. Meanwhile, she has been cooperative with treatment recommendations and has been taking medications and tolerating them fairly well without any side effects. MENTAL STATUS EXAMINATION Middle-age white female who was casually dressed with a fair personal hygiene and appears to be in no acute distress or discomfort. The patient was awake and alert on interaction with intact orientation. Her mood was anxious with a congruent affect. She denies any suicidal or homicidal ideation. Her insight and judgment remains slightly impaired. TREATMENT PLAN 1. We will continue on current medications and treatment protocol. We will monitor her response to the medications and make further adjustments as needed. 2. We will continue to follow up. Dictated by... Costa Ambriz/lian TD: 03/14/2017 14:35 JOB #: [id number] Unit #: [id number] #: [id number] Patient: MU NGUYEN PROGRESS NOTES Page 1 of 1 X Kandis Madrigal MD PROGRESS NOTE
--- NOTE | ~2017-03-12 | PA ---
Unit #: [id number] #: [id number] Patient: [facility]GUYEN [id number] [facility] [address] [place] [address] [id number] I MR#: [id number] NAME: MU NGUYEN ROOM: P130 Age: 47 Sex: F Admission Date: 03/12/2017 : 1970 Date of Assessment: Attending Physician: Kandis Madrigal M.D. Admitting Physician: Kandis Madrigal M.D. PSYCHIATRIC ASSESSMENT DATE OF SERVICE 03/12/2017. IDENTIFYING DATA Ms. Nguyen is a 47-year-old , white female who is a resident of [place], [place] and was very well known to us from previous encounter, and was recently discharged from my care and was self-referred back to the hospital. CHIEF COMPLAINT "I cannot find a right to get up here for outpatient." HISTORY OF PRESENT ILLNESS Ms. Nguyen is a 47-year-old white female who was recently discharged from my care and reports that she could not get transportation to come here to sign up with intensive outpatient program, "I have not had my medications really bad. I'm still is not doing well and I want to hurt myself. I'm thinking about hanging myself." The patient was seen to be anxious and withdrawn. She reports increasing depression, anxiety, agitation, irritability, and feelings of hopelessness and helplessness, and suicidal ideation with intent and plan to hang herself and was seen to be danger to self and recommendation for inpatient level of care for safety and stabilization was made, and the patient was transferred to us. SUBSTANCE ABUSE HISTORY The patient denies any history of alcohol or drug abuse. PAST PSYCHIATRIC HISTORY The patient has had history of multiple inpatient psychiatric hospitalizations at [facility] and has been diagnosed and treated for bipolar disorder and supposed to be on a combination of Seroquel, and Neurontin but apparently has been noncompliant with medication and has been decompensating. PAST MEDICAL HISTORY No acute or chronic medical illnesses. ALLERGIES Codeine and Bactrim. PERSONAL AND SOCIAL HISTORY A 47-year-old white female who reports she is , single, and lives Unit #: [id number] #: [id number] Patient: MU NGUYEN with a roommate and has poor social support system. She also reports that she is currently unemployed and has financial issues. MENTAL STATUS EXAMINATION Middle-aged white female who was casually dressed with fair personal hygiene, appears to be in no acute distress or discomfort. She was awake and alert on interaction with intact orientation to time, place, and person. Her mood was anxious and depressed with a congruent affect. Her speech was slow and restricted in content. She reports having suicidal ideations, but denies any homicidal ideations, and also denies any auditory or visual hallucinations. Her insight and judgment remain slightly impaired. DIAGNOSTIC IMPRESSION Psychiatric: Bipolar disorder, most recent episode depressed, recurrent, moderate, without psychotic features. Medical: None. Stressors: Moderate psychosocial stressors. TREATMENT PLAN 1. The patient has presented with history of mood disorder, and has been decompensating and will need inpatient hospitalization for safety and stabilization. We will start her back on her home medications. We will adjust the medications and monitor response. 2. Supportive therapy was provided to the patient. 3. Safe, structured, and nourishing environment will be provided. ESTIMATED LENGTH OF STAY 4 to 5 days. ABILITY TO HELP SELF Limited. WILLINGNESS TO HELP SELF The patient appears to be willing to help self. STRENGTHS 1. Communicative. 2. Cooperative. PROBLEMS 1. Chronic dysphoric symptoms. 2. Chronic chemical dependency. 3. Poor social support system. DISCHARGE CRITERIA This will be contingent upon the patient's ability to show resolution of her depression and anxiety and her ability to stay safe to herself, particularly after discharge from the hospital. Dictated by... Costa Ambriz/sonja TD: 03/13/2017 11:26 JOB #: [id number] Unit #: [id number] #: [id number] Patient: MU NGUYEN PSYCHIATRIC ASSESSMENT Page 1 of 1 X Kandis Madrigal MD PSYCHIATRIC ASSESSMENT
--- NOTE | ~2017-03-12 | PN ---
Unit #: [id number] #: [id number] Patient: MU NGUYEN [id number] [facility] [address] [place] [address] [id number] MR#: [id number] NAME: MU NGUYEN ROOM: P130 Age: 47 Sex: F Admission Date: 03/12/2017 : 1970 Attending Physician: Kandis Madrigal M.D. Admitting Physician: Kandsi Madrigal M.D. Primary Care Physician: Primary Care Physician Mague DA SILVA NOTES DATE OF SERVICE: 03/15/2017 SUBJECTIVE Ms. Nguyen is a 47-year-old white female, who was seen today and chart was reviewed and the case was discussed with the staff. She has been anxious, withdrawn, and rather seclusive to herself. Meanwhile, she has been cooperative with the treatment recommendations and has been taking the medications and tolerating them fairly well with no reported side effects. MENTAL STATUS EXAMINATION Middle-aged white female, who was casually dressed with a fair personal hygiene, appears to be in no acute distress or discomfort. She was awake and alert on interaction with intact orientation. Her mood was anxious with a congruent affect. She denies any suicidal or homicidal ideations. Her insight and judgment remain slightly impaired. TREATMENT PLAN 1. We will continue her on her current medications and treatment protocol. We will monitor her response to the medications and make further adjustments as needed. 2. We will continue to follow up. Dictated by... Costa Ambriz/sonja TD: 03/15/2017 11:51 JOB #: [id number] [facility] PROGRESS NOTES Page 1 of 1 X Kandis Madrigal MD PROGRESS NOTE
--- NOTE | ~2017-03-12 | HP ---
Unit #: [id number] #: [id number] Patient: MU NGUYEN [id number] [facility] [address] [place] [address] [id number] I MR#: [id number] NAME: MU NGUYEN ROOM: P130 Age: 47 Sex: F Admission Date: 03/12/2017 : 1970 Attending Physician: Kandis Madrigal M.D. Admitting Physician: Kandis Madrigal M.D. Primary Care Physician: Primary Care Physician No HISTORY AND PHYSICAL NOTE The patient is a 47-year-old female admitted to [address] [place] [address] on 03/12/2017 for suicidal ideations. The patient had a recent admission where a full history and physical was completed. Please see H and P dated 02/12/2017. That history and physical has been reviewed. No changes need to be made. Dictated by... Tu Vigil A.P.R.N. EF/bzg TD: 03/13/2017 11:39 JOB #: [id number] HISTORY AND PHYSICAL Page 1 of 1 X TU VIGIL APRN X HISTORY AND PHYSICAL
--- NOTE | ~2017-03-12 | DS ---
Unit #: [id number] #: [id number] Patient: MU NGUYEN [id number] [facility] [address] [place] [address] [id number] I MR#: [id number] NAME: MU NGUYEN. ROOM: P130 Age: 47 Sex: F Admission Date: 03/12/2017 : 1970 Discharge Date: Attending Physician: Kandis Madrigal M.D. Primary Care Physician: Primary Care Physician No DISCHARGE SUMMARY IDENTIFYING DATA Ms. Nguyen is a 47-year-old white female, who is a resident of [place], [place], and is known to us from previous encounter, was self-referred to the hospital on a voluntary basis. DISCHARGE DIAGNOSES Psychiatric: Major depressive disorder, recurrent, moderate, with psychosis. Medical: None. Stressors: Moderate psychosocial stressors. HISTORY OF PRESENT ILLNESS Please see initial psychiatric evaluation for details. PAST PSYCHIATRIC HISTORY Please see initial psychiatric evaluation for details. PAST MEDICAL HISTORY Please see initial psychiatric evaluation for details. HOSPITAL COURSE The [facility] and was oriented to the hospital environment. Routine p.r.n. medications were initiated, and she was started back on her home medications and medications were adjusted and she was pretty much maintained on her home medication as she has history of poor compliance with psychotropic medications outside of the hospital and once maintained on the medication, she was seen to be doing much better and was calm and cooperative and compliant with the treatment recommendations and as such, it was decided that she will be discharged home and will continue treatment on an outpatient basis. DISCHARGE MEDICATIONS Seroquel 50 mg in the morning and afternoon, and 600 mg at bedtime for psychosis; Effexor XR 75 mg in the evening for depression; Minipress 2 mg at bedtime for PTSD. DISCHARGE CONDITION Stable. PROGNOSIS Fair. Dictated by... Unit #: [id number] #: [id number] Patient: MU NGUYEN Costa Ambriz/modl TD: 03/17/2017 06:50 JOB #: [id number] DISCHARGE SUMMARY Page 1 of 1 X Kandis Madrigal MD DISCHARGE SUMMARY
--- NOTE | ~2017-03-12 | PN ---
Unit #: [id number] #: [id number] Patient: MU NGUYEN [id number] [facility] [address] [place] [address] [id number] I MR#: [id number] NAME: MU NGUYEN. ROOM: P130 Age: 47 Sex: F Admission Date: 03/12/2017 : 1970 Attending Physician: Kandis Madrigal M.D. Admitting Physician: Kandis Madrigal M.D. Primary Care Physician: Primary Care Physician Mague DA SILVA NOTES DATE OF SERVICE: 03/16/2017 SUBJECTIVE Ms. Jamil is a 47-year-old white female, who was seen today and chart was reviewed and the case was discussed with the staff. She has been anxious, withdrawn, and rather seclusive to herself. Meanwhile, she has been cooperative with the treatment recommendations and has been taking the medications and tolerating them fairly well. MENTAL STATUS EXAMINATION Middle-aged white female, who was casually dressed with fair personal hygiene and appears to be in no acute distress or discomfort. She was awake and alert on interaction with intact orientation. Her mood was anxious with a congruent affect. Her speech was slow and goal directed. She denies any suicidal or homicidal ideations and also denies any auditory or visual hallucinations. Her insight and judgment remain slightly impaired. TREATMENT PLAN 1. We will continue her on her current medications and treatment protocol. We will monitor her response to the medications and make further adjustments as needed. 2. We will continue to follow up. Dictated by... Costa Ambriz/sonja TD: 03/16/2017 14:56 JOB #: [id number] Unit #: [id number] #: [id number] Patient: MU NGUYEN CHHAYA PROGRESS NOTES Page 1 of 1 X Kandis Madrigal MD PROGRESS NOTE
--- NOTE | ~2017-03-12 | PN ---
Unit #: [id number] #: [id number] Patient: MU NGUYEN [id number] [facility] [address] [place] [address] [id number] MR#: [id number] NAME: MU NGUYEN. ROOM: P130 Age: 47 Sex: F Admission Date: 03/12/2017 : 1970 Attending Physician: Kandis Madrigal M.D. Admitting Physician: Kandis Madrigal M.D. Primary Care Physician: Primary Care Physician Mague DA SILVA NOTES DATE March 14, 2017 DISCUSSION Ms. Nguyen is a 47-year-old white female, who was seen today and chart was reviewed and the case was discussed with the staff. She has been anxious, withdrawn, but has not shown any agitation, irritability, or behavioral problems, and has been cooperative with the treatment recommendations, and she has been taking the medications and tolerating them fairly well with no reported side effects. MENTAL STATUS EXAMINATION Middle-aged white female, who was casually dressed with fair personal hygiene and appears to be in no acute distress or discomfort. She was awake and alert on interaction with intact orientation. Her mood is anxious with a congruent affect. The patient denies any suicidal or homicidal ideations. Her insight and judgment remain slightly impaired. TREATMENT PLAN 1. We will continue her on her current medications and treatment protocol, and will monitor her response to the medications, and make further adjustments as needed. 2. We will continue to followup. Dictated by... Costa Ambriz/penelope TD: 03/15/2017 11:10 JOB #: [id number] Unit #: [id number] #: [id number] Patient: MU NGUYEN PROGRESS NOTES Page 1 of 1 X Kandis Madrigal MD PROGRESS NOTE
[2017-03-13 10:49] LABS: BASOPHIL# 0.1 X10e3 (0-0.3); BASOPHIL% 0.7 % (0-2.5); DIFF IND NO; EOSINOPHIL# 0.2 X10e3 (0-0.7); EOSINOPHIL% 2.7 % (0.0-7.0); HEMATOCRIT 35.8 % (35.0-45.0); HEMOGLOBIN 11.6 gm/dL (12.0-16.0); LYMPHOCYTE# 3.2 X10e3 (1.0-3.5); LYMPHOCYTE% 36.4 % (17.0-45.0); MEAN CELL VOLUME 88.2 FL (83-96); MEAN CORPUSCULAR HEMOGLOBIN 28.7 PG (28-34); MEAN CORPUSCULAR HGB CONC 32.5 g/dL (30-36); MEAN PLATELET VOLUME 8.4 FL (6.5-11.5); MONOCYTE# 0.7 X10e3 (0-1.0); MONOCYTE% 7.9 % (3.0-12.0); NEUTROPHIL# 4.6 X10e3 (1.5-7.1); NEUTROPHIL% 52.3 % (40-75); PLATELET COUNT 325 X10e3 (140-420); RED BLOOD COUNT 4.06 X10e (3.90-5.30); RED CELL DISTRIBUTION WIDTH 16.2 % (11.0-15.5); WHITE BLOOD COUNT 8.8 X10e3 (4.0-10.5)
[2017-03-13 11:59] LABS: ALBUMIN SERUM 3.8 g/dL (3.5-5.0); BILIRUBIN,TOTAL 0.5 mg/dL (0.2-2.0); BUN/CREATININE RATIO 13.33; CALCIUM SERUM 8.7 mg/dL (8.4-10.2); CREATININE SERUM 0.6 mg/dL (0.6-1.4); GLOM FILT RATE Estimated 108.5 mL/min (>60); POTASSIUM 3.8 mmol/L (3.5-5.1); PROTEIN TOTAL SERUM 6.4 g/dL (6.0-8.3)
[2017-03-15 09:59] LABS: URINE APPEARANCE CLOUDY; URINE BILIRUBIN NEG (NEG); URINE BLOOD NEG (NEG); URINE COLOR YELLOW; URINE GLUCOSE NEG (NEG); URINE KETONE NEG (NEG); URINE LEUKOCYTE ESTERASE 2+ (NEG); URINE NITRATE NEG (NEG); URINE PROTEIN NEG (NEG); URINE SPECIFIC GRAVITY 1.028 (1.003-1.035); URINE UROBILINOGEN 0.2 MG/DL (NEG)
[2017-03-15 10:03] LABS: URINE BACTERIA AUWI 2+ (NEGATIVE); URINE SQUAMOUS EPITHELIAL CELL MOD /[HPF]; UWBCS1 AUWI 50-100 (0-5)
[2017-03-15 10:42] LABS: AMPHETAMINE NEG (NEG); BARBITURATES NEG (NEG); BENZODIAZEPINES NEG (NEG); COCAINE NEG (NEG); MARIJUANA NEG (NEG); OPIATES NEG (NEG); TRICYCLIC ANTIDEPRESSANTS POS (NEG); U METHADONE NEG (NEG)
== END 2017-03-17 12:00 | DRG 885 ==
LOC: P1S 14:53
PROVIDERS: Psychiatry & Neurology Psychiatry
DX: F33.3 Major depressive disorder, recurrent, severe with psychotic symptoms (principal)
CPT/HCPCS: 80053; 80307; 81003; 84703; 85025

== ENCOUNTER 2017-06-16 13:00 | Inpatient (IN) | payer OTHER ==
[~2017-06-16] VITALS: Ht 165.1 cm; Wt 82.1 kg
--- NOTE | ~2017-06-16 | CO ---
Unit #: [id number] #: [id number] Patient: MU NGUYEN [id number] [place] [address] [id number] MR#: [id number] NAME: MU NGUYEN ROOM: P256 Age: 47 Sex: F Admission Date: 06/16/2017 : 1970 Attending Physician: Kandis Madrigal M.D. Primary Care Physician: Primary Care Physician No Consultation Date: 06/17/2017 CONSULTATION REPORT BLAKE Dockery is a 47-year-old with a history of COPD. At time of admission H and P, she was noted to have decreased breath sounds and bilateral wheezes. She was admitted on albuterol inhaler and albuterol Mini-Neb q.4 hours while awake were added to her medication regimen. In 24 hours, she had greatly improved and had no complaints of increased shortness of breath. She knows to follow up with primary care as needed. Dictated by... Carmenza Castañeda P.A.-C. for Costa Arredondo/sonja TD: 06/23/2017 17:16 JOB #: [id number] CONSULTATION REPORT Page 1 of 1 X Carmenza Castañeda CONSULTATION REPORT
--- NOTE | ~2017-06-16 | PN ---
Unit #: [id number] #: [id number] Patient: MU NGUYEN [id number] [facility] [address] [place] [address] [id number] I MR#: [id number] NAME: MU NGUYEN. ROOM: P256 Age: 47 Sex: F Admission Date: 06/16/2017 : 1970 Attending Physician: Kandis Madrigal M.D. Admitting Physician: Kandis Madrigal M.D. Primary Care Physician: Primary Care Physician Mague DA SILVA NOTES DATE OF SERVICE 06/18/2017 DISCUSSION Mr. Nguyen is a 47-year-old white female who was seen today. Chart was reviewed and case was discussed with staff. She has been anxious, withdrawn, depressed, and rather seclusive to herself, and reports feelings of hopelessness and helplessness. Meanwhile, she has been taking the medications and tolerating them fairly well with no reported side effects. MENTAL STATUS EXAMINATION Middle-aged white female who is casually dressed with fair personal hygiene, appears to be in slight distress or discomfort. The patient was awake and alert on interaction with intact orientation. Her mood is anxious and depressed with congruent affect. Her speech is slow and goal-directed. She reports having suicidal ideation and denies any homicidal ideation and also denies any auditory or visual hallucinations. Her insight and judgment remain slightly impaired. TREATMENT PLAN 1. We will continue her on her current medications and treatment protocol. We will monitor her response and make further adjustments as needed. 2. We will continue to follow up. Dictated by... Costa Ambriz/alyce TD: 06/18/2017 09:23 JOB #: [id number] Unit #: [id number] #: [id number] Patient: MU NGUYEN CHHAYA PROGRESS NOTES Page 1 of 1 X Kandis Madrigal MD PROGRESS NOTE
--- NOTE | ~2017-06-16 | DS ---
Unit #: [id number] #: [id number] Patient: MU NGUYEN [id number] [facility] [address] [place] [address] [id number] I MR#: [id number] NAME: MU NGUYEN ROOM: P256 Age: 47 Sex: F Admission Date: 06/16/2017 : 1970 Discharge Date: 06/22/2017 Attending Physician: Kandis Madrigal M.D. Primary Care Physician: Primary Care Physician No DISCHARGE SUMMARY IDENTIFICATION DATA Ms. Nguyen is a 47-year-old white female who is a resident of [place], [place], and he is very well known to us from previous multiple encounters and was self-referred to the hospital. DISCHARGE DIAGNOSES PSYCHIATRIC: Bipolar disorder, most recent episode, depressed, recurrent, moderate, without psychotic features. MEDICAL: Asthma. STRESSORS: Mild psychosocial stressors. HISTORY OF PRESENT ILLNESS Same as in initial psychiatric evaluation. PAST PSYCHIATRIC HISTORY Same as in initial psychiatric evaluation. PAST MEDICAL HISTORY Same as in initial psychiatric evaluation. HOSPITAL COURSE The patient was [facility] and was oriented to the hospital environment. Routine p.r.n. medications were initiated, and she was started back on her home medications. As usual, she was seen to be exhibiting med-seeking behavior and is known to us from several encounters in the past where she usually comes to the hospital quite often and then refuses to follow up with treatment recommendations outside the hospital as she does not come to the outpatient program, does not see a psychiatrist, and that she keeps coming back to the hospital and keeps on stating that she is looking for the right anxiety medicine which according to her definition is the benzodiazepine as every other medicine which is non-benzodiazepine that we tries, she comes up with not showing a therapeutic response to the medication, and the medication was helping. During this hospitalization, she also decided that she wanted to switch her Seroquel to Abilify which was done, but she had tolerability issues with Abilify, and as such Seroquel was started back, and she was closely monitored. She was taking the medications regularly and was tolerating them fairly well. As such, it was decided that she will be discharged home. We will continue treatment on outpatient basis. Once again, emphasis was laid on the continuity of care. The patient was strongly advised to come to the outpatient treatment program and actually was warned that we will document that outpatient has been set up and recommended, and if she does not show up for the outpatient treatment program it will be on to her as she has Unit #: [id number] #: [id number] Patient: MU NGUYEN been coming to the hospital regularly, and we have been encouraging her to make effort to stay out of the hospital and to invest in the outpatient treatment program. DISCHARGE MEDICATIONS 1. Seroquel 50 mg in the morning and afternoon and 300 mg at bedtime for bipolar. 2. Effexor XR 75 mg in the evening for depression. CONDITION AT DISCHARGE Stable. PROGNOSIS Fair. Dictated by... Kandis Madrigal M.D. IAA/bzg TD: 06/23/2017 09:03 JOB #: [id number] DISCHARGE SUMMARY Page 1 of 1 X Kandis Madrigal MD X DISCHARGE SUMMARY
--- NOTE | ~2017-06-16 | PA ---
Unit #: [id number] #: [id number] Patient: [facility] [id number] [facility] [address] [place] [address] [id number] I MR#: [id number] NAME: MU NGUYEN. ROOM: P256 Age: 47 Sex: F Admission Date: 06/16/2017 : 1970 Date of Assessment: Attending Physician: Kandis Madrigal M.D. Admitting Physician: Kandis Madrigal M.D. Primary Care Physician: Primary Care Physician No PSYCHIATRIC ASSESSMENT INFORMANTS The patient reliability, fair informant and chart reliability, good. CHIEF COMPLAINT Suicidal. HISTORY OF PRESENT ILLNESS Ms. Mu Nguyen is a 47-year-old female, seen on [facility] with the above-mentioned complaint. The patient has a [facility] of [facility], 02/2017, 12/2016, 01/2017, and 01/2015 for suicidal ideation. The patient lives with a roommate, presented due to increase in suicidal ideation and plan to hang herself. The patient reported tried to gather necessary items and planning. The patient has a history of one suicide attempt in the past. The patient reported recent stressors included her mother dying two months ago shortly after mother's day. The patient denied any homicidal ideation or psychotic symptom. The patient needed inpatient admission at this time for psychiatric stabilization. PAST PSYCHIATRIC HISTORY Remarkable for history of numerous multiple admission to [facility] as mentioned above. FAMILY HISTORY AND SOCIAL HISTORY The patient has a roommate, poor support system. No history of abuse. No legal charges. MEDICAL HISTORY Remarkable for hypertension and lupus. MEDICATION HISTORY The patient is on Seroquel, Effexor, and Minipress. ALLERGIES No known drug allergies. SUBSTANCE ABUSE HISTORY The patient reported tobacco use. Denied any use of any drugs or alcohol. REVIEW OF SYSTEMS HEENT: Eyes, clear. Ears, nose, mouth, and throat; clear. CARDIOVASCULAR: Unremarkable. RESPIRATORY: Unremarkable. Unit #: [id number] #: [id number] Patient: MU NGUYEN GI: Unremarkable. : Unremarkable. SKIN: Unremarkable. LYMPH NODE: Unremarkable. NEUROLOGIC: Unremarkable. ENDOCRINE: Unremarkable. HEMATOLOGIC: Unremarkable. ALLERGIC/IMMUNOLOGIC: Unremarkable. MUSCULOSKELETAL: Muscle strength and tone, no atrophy or abnormal movement. Gait normal. MENTAL STATUS EXAMINATION CONSTITUTIONAL: Measurement of vital signs; temperature 98.4, heart rate 89, respiratory rate 20, blood pressure 144/92, height 5 feet 5 inches, weight 181 pounds. GENERAL APPEARANCE: The patient dressed casually. The patient did not show any facial deformity. MUSCULOSKELETAL: Please see above. PSYCHIATRIC EXAMINATION Description of speech; regular rate, normal volume, normal articulation, and coherent. Description of thought process, goal directed. Description of association, intact. Description of abnormal psychotic thinking; denied any hallucination, but reported suicidal ideation. Description of the patient's judgment: Concerning everyday activity, poor. Social situation, poor. Concerning psychiatric condition, poor. Complete mental status examination; oriented in time, place, and person. Recent and remote memory, fair. Attention span and concentration, fair. Language, able to name object and repeat phrases. Fund of knowledge, aware of current event and passive vocabulary intact. Mood and affect, sad and dysphoric. Insight and judgment, fair to poor. ASSETS AND LIABILITIES Assets, the patient is articulate and able to take care of her ADL. Liability; history of depression, suicidal ideation, suicide attempt. ADMITTING DIAGNOSES Psychiatric: Bipolar mood disorder, recurrent, severe, depressed, F31.9. Secondary diagnosis: Deferred. Medical diagnosis: None. Stressors: Psychosocial stressors. PSYCHIATRIC PLAN AND TREATMENT GOAL AND DISCHARGE PLAN 1. Advised to admit the patient on the inpatient unit. Provide safe, supportive, and structured environment. 2. Ordered labs; CBC, CMP, UA, and UDS. 3. Precaution for aggression and self-harm. 4. Advised to resume discharge medication from the last time. The patient to attend all the programing, group therapy, individual therapy, and family session. Treatment goal to attain euthymic mood, gain insight into her problem, and learn coping skills. DISCHARGE PLAN Plan to stabilize the patient and consider followup in outpatient program. Unit #: [id number] #: [id number] Patient: MU NGUYEN ESTIMATED LENGTH OF STAY 5 to 7 days. Dictated by... Ti Perales M.D. YONIS/sonja TD: 06/17/2017 18:34 JOB #: [id number] PSYCHIATRIC ASSESSMENT Page 1 of 1 X Ti Perales MD PSYCHIATRIC ASSESSMENT
--- NOTE | ~2017-06-16 | PN ---
Unit #: [id number] #: [id number] Patient: MU NGUYEN [id number] [facility] [address] [place] [address] [id number] I MR#: [id number] NAME: MU NGUYEN. ROOM: P256 Age: 47 Sex: F Admission Date: 06/16/2017 : 1970 Attending Physician: Kandis Madrigal M.D. Admitting Physician: Kandis Madrigal M.D. Primary Care Physician: Primary Care Physician Mague DA SILVA NOTES DATE June 20, 2017 DISCUSSION Ms. Nguyen is a 47-year-old white female, who was seen today and chart was reviewed and the case was discussed with the staff. The patient has been anxious and withdrawn but reports improvement in her mood and daily functioning, and particularly since the addition of her Abilify. The patient has been taking the medications and tolerating them fairly well with no reported side effects. MENTAL STATUS EXAMINATION Middle-aged white female, who was casually dressed with fair personal hygiene and appears to be in no acute distress or discomfort. The patient was awake and alert on interaction with intact orientation. Her mood was anxious with a congruent affect. The patient denies any suicidal or homicidal ideations. Her insight and judgment remain slightly impaired. TREATMENT PLAN 1. We will continue her on her current medications and treatment protocol, and will monitor her response to the medications, and make further adjustments as needed. 2. We will continue to followup. Dictated by... Costa Ambriz/penelope TD: 06/21/2017 05:45 JOB #: [id number] Unit #: [id number] #: [id number] Patient: MU NGUYEN PEAELI PROGRESS NOTES Page 1 of 1 X Kandis Madrigal MD PROGRESS NOTE
--- NOTE | ~2017-06-16 | PN ---
Unit #: [id number] #: [id number] Patient: MU NGUYEN [id number] [facility] [address] [place] [address] [id number] I MR#: [id number] NAME: MU NGUYEN ROOM: P256 Age: 47 Sex: F Admission Date: 06/16/2017 : 1970 Attending Physician: Kandis Madrigal M.D. Admitting Physician: Kandis Madrigal M.D. Primary Care Physician: Primary Care Physician Mague SHAVER PROGRESS NOTES DATE 06/21/2017 DISCUSSION Ms. Nguyen is a 47-year-old white female who was seen today and chart was reviewed and case was discussed with the staff who report the patient has not been doing good as the patient switched her Abilify from Seroquel on an old request but has been having significantly tolerability issues with panic like state and was at the nursing station at 4:30 this morning and still has some anxiety and shaking and tremulous and restless and her vitals were stable and a p.r.n. dose of Cogentin was given to cut down on side effects from Abilify. The patient reported that she does not want to be on Abilify and wants to switch back to Seroquel which will be started back. We will monitor her response to the medications and treatment protocol. We will make further adjustments as needed. Dictated by... Costa Ambriz/guillermina TD: 06/22/2017 03:26 JOB #: [id number] CHHAYA PROGRESS NOTES Page 1 of 1 X Kandis Madrigal MD PROGRESS NOTE
--- NOTE | ~2017-06-16 | PN ---
Unit #: [id number] #: [id number] Patient: MU NGUYEN [id number] [facility] [address] [place] [address] [id number] I MR#: [id number] NAME: MU NGUYEN ROOM: P256 Age: 47 Sex: F Admission Date: 06/16/2017 : 1970 Attending Physician: Kandis Madrigal M.D. Admitting Physician: Kandis Madrigal M.D. Primary Care Physician: Primary Care Physician Mague DA SILVA NOTES DATE 06/19/2017 DISCUSSION Ms. Nguyen is a 47-year-old white female who was seen today and chart was reviewed and case was discussed with the staff. She has been anxious, withdrawn, depressed and rather seclusive to herself and patient does not feel Seroquel has been helping her as she has been on Seroquel for some time and the dosage has been titrated and therefore she request it to be changed to Abilify. Meanwhile, she has not shown any agitation or aggression. MENTAL STATUS EXAMINATION Middle-aged white female who was casually dressed with fair personal hygiene and appears to be in no acute distress or discomfort. She was awake and alert on interaction with intact orientation. Her mood was anxious with congruent affect. Her speech is slow and goal-directed. She denies any suicidal or homicidal ideation. Her insight and judgement remains slightly impaired. TREATMENT PLAN 1. Will continue on current medications and treatment protocol. Will switch her Seroquel to Abilify 5 mg twice a day and will monitor her response and make further adjustments as needed. 2. We will continue to follow up. Dictated by... Costa Ambriz/albina TD: 06/19/2017 20:33 JOB #: [id number] Unit #: [id number] #: [id number] Patient: UM NGUYEN CHHAYA PROGRESS NOTES Page 1 of 1 X Kandis Madrigal MD PROGRESS NOTE
--- NOTE | ~2017-06-16 | HP ---
Unit #: [id number] #: [id number] Patient: MU NGUYEN [id number] [place] [address] [id number] I MR#: [id number] NAME: MU NGUYEN ROOM: P256 Age: 47 Sex: F Admission Date: 06/16/2017 : 1970 Attending Physician: Ti Perales M.D. Admitting Physician: Ti Perales M.D. Primary Care Physician: Primary Care Physician No HISTORY AND PHYSICAL HISTORY OF PRESENT ILLNESS Mu is a 47 year old admitted to [address] [place] [address] with depression. PAST MEDICAL HISTORY 1. High blood pressure. 2. Lupus. 3. COPD. PAST SURGICAL HISTORY Nothing reported. ALLERGIES Codeine, sulfa. SOCIAL HISTORY Smokes one pack per day. Denies alcohol and illicit drug use. FAMILY HISTORY Medically noncontributory. REVIEW OF SYSTEMS CONSTITUTIONAL: No fever or chills. HEENT: Denies any sore throat, ear pain or runny nose. CARDIOVASCULAR: Denies chest pain, irregular heart rhythm or palpitations. CHEST: She does report difficulty breathing. She has had no increased cough or temperature. GASTROINTESTINAL: Denies nausea, vomiting, diarrhea or chronic constipation. ENDOCRINE: Denies history of increased thirst or urination. No recent significant weight loss or gain. GENITOURINARY: Denies dysuria, frequency, or hematuria. SKIN: Denies any rashes. HEMATOLOGIC: Denies history of increased bleeding or bruising. MUSCULOSKELETAL: Denies any hot, swollen joints. No generalized muscle pain. NEUROLOGIC: Denies problems with vision or speech. No frequent, severe headaches. No numbness, tingling or weakness in any extremities. Denies loss of bladder or bowel control. CURRENT MEDICATIONS 1. Minipress 2 mg q.h.s. 2. Seroquel 50 mg b.i.d., 600 mg q.h.s. Unit #: [id number] #: [id number] Patient: MU NGUYEN 3. Proventil inhaler p.r.n. 4. Milk of Magnesia p.r.n. 5. Maalox p.r.n. 6. Tylenol p.r.n. 7. Nicotine patch 14 mg q day 8. Effexor XR75 mg q day PHYSICAL EXAMINATION GENERAL: Alert, well-nourished, in no apparent distress. VITAL SIGNS: Blood pressure 144/92, heart rate 80, respirations 16, temperature 98.6. WEIGHT: 181. HEIGHT: 5 foot 5 inches. SKIN: Warm and dry without rash or lesion. HEENT: Normocephalic. TMs not viewed. Oral and nasal passages clear. Conjunctivae clear. Pupils equal, round and reactive to light and accommodation. Extraocular movements intact. NECK: Supple without lymphadenopathy or thyromegaly. HEART: Regular rate and rhythm without murmur. CHEST: Decreased breath sounds with wheezing bilaterally. ABDOMEN: Soft, nontender. : Not done. EXTREMITIES: No evidence of cyanosis, clubbing or edema. Moves all extremities without focal deficit. NEUROLOGICAL: Grossly within normal limits. Cranial Nerves: II: Visual veronica are intact. III, IV AND : Extraocular movements are intact. Pupils are equal, round and reactive to light. V: Facial sensation is grossly normal. VII: Facial movements and expression are normal. VIII: Auditory acuity grossly intact. IX, X: Uvula is midline. Phonation is normal. XI: Patient shrugs shoulders and turns head normally. XII: Tongue protrudes in the midline. Sensory and Motor Function: Sensory and motor sensation is grossly normal. Motor: moves all extremities well. Coordination: Gait is normal. Deep Tendon Reflexes: Intact. IMPRESSION 1. Psychiatric admission 2. COPD. RECOMMENDATIONS PSYCHIATRIC: Per psychiatrist. MEDICAL: 1. I see no contraindications to participating in facility's activities. 2. Continue albuterol inhaler. Start Albuterol mini-nebs q four hours while awake. MEDICAL PROGNOSIS Good. MEDICAL CONDITION Stable. Unit #: [id number] #: [id number] Patient: MU NGUYEN Dictated by... Carmenza Castañeda P.A.-C. for Costa Arredondo/guillermina TD: 06/16/2017 20:46 JOB #: [id number] HISTORY AND PHYSICAL Page 1 of 1 X Carmenza Castañeda X HISTORY AND PHYSICAL
--- NOTE | ~2017-06-16 | PN ---
Unit #: [id number] #: [id number] Patient: MU NGUYEN [id number] [facility] [address] [place] [address] [id number] I MR#: [id number] NAME: MU NGUYEN. ROOM: P256 Age: 47 Sex: F Admission Date: 06/16/2017 : 1970 Attending Physician: Ti Perales M.D. Admitting Physician: Ti Perales M.D. Primary Care Physician: Primary Care Physician Mague SHAVER PROGRESS NOTES DATE OF SERVICE 06/17/2017 DISCUSSION Mu is a 47-year-old female seen on 06/17/2017. Patient interviewed, chart reviewed. Obtained information from nursing staff. Patient reported that she would like to go back on her previous medication as she did better on that combination Effexor, Requip, Neurontin, Minipress, Seroquel was resumed. The patient was on a rather high dosage of Neurontin. I would like to see her on a smaller dosage. The patient still sad, depressed, withdrawn, guarded. Complete review of systems unremarkable. MENTAL STATUS EXAMINATION General appearance, patient dressed casually. Attention span and concentration fair. Oriented to place and person. Mood and affect labile. Speech monotone. Thought process concrete. Patient reported having thoughts of harming self. Recent and remote memory poor. Insight and judgement poor. DIAGNOSES Bipolar mood disorder NOS. ASSESSMENT/PLAN Advise to continue with current medication and therapeutic protocol. If needed consider further adjustment of medication. Dictated by... Costa Gautam/guillermina TD: 06/18/2017 03:06 JOB #: [id number] Unit #: [id number] #: [id number] Patient: MU NGUYEN [facility] PROGRESS NOTES Page 1 of 1 X Ti Perales MD X PROGRESS NOTE
[2017-06-17 10:04] LABS: URINE APPEARANCE CLOUDY; URINE BILIRUBIN NEG (NEG); URINE BLOOD NEG (NEG); URINE COLOR YELLOW; URINE GLUCOSE NEG (NEG); URINE KETONE NEG (NEG); URINE LEUKOCYTE ESTERASE 2+ (NEG); URINE NITRATE NEG (NEG); URINE PH 6.5 (5-8); URINE PROTEIN NEG (NEG); URINE SPECIFIC GRAVITY 1.007 (1.003-1.035); URINE UROBILINOGEN 0.2 MG/DL (NEG)
[2017-06-17 10:07] LABS: URINE BACTERIA AUWI 2+ (NEGATIVE)
[2017-06-17 10:49] LABS: AMPHETAMINE NEG (NEG); BARBITURATES NEG (NEG); BENZODIAZEPINES POS (NEG); COCAINE NEG (NEG); MARIJUANA NEG (NEG); OPIATES NEG (NEG); TRICYCLIC ANTIDEPRESSANTS POS (NEG); U METHADONE NEG (NEG)
[2017-06-17 10:53] LABS: URINE AMORPHOUS SEDIMENT AMORP URATES; URINE SQUAMOUS EPITHELIAL CELL MANY /[HPF]; URINE YEAST PRESENT
[2017-06-17 12:31] LABS: BASOPHIL# 0.1 X10e3 (0-0.3); EOSINOPHIL# 0.2 X10e3 (0-0.7); EOSINOPHIL% 2.6 % (0.0-7.0); HEMATOCRIT 35.4 % (35.0-45.0); LYMPHOCYTE# 2.7 X10e3 (1.0-3.5); LYMPHOCYTE% 32.4 % (17.0-45.0); MEAN CELL VOLUME 90.9 FL (83-96); MEAN CORPUSCULAR HEMOGLOBIN 30.7 PG (28-34); MEAN CORPUSCULAR HGB CONC 33.8 g/dL (30-36); MEAN PLATELET VOLUME 8.5 FL (6.5-11.5); MONOCYTE# 0.6 X10e3 (0-1.0); MONOCYTE% 7.7 % (3.0-12.0); NEUTROPHIL# 4.8 X10e3 (1.5-7.1); NEUTROPHIL% 56.3 % (40-75); PLATELET COUNT 379 X10e3 (140-420); RED CELL DISTRIBUTION WIDTH 15.7 % (11.0-15.5); WHITE BLOOD COUNT 8.4 X10e3 (4.0-10.5)
[2017-06-17 12:40] LABS: DIFF IND NO
[2017-06-17 12:53] LABS: ALBUMIN SERUM 4.1 g/dL (3.5-5.0); BILIRUBIN,TOTAL 0.5 mg/dL (0.2-2.0); BUN/CREATININE RATIO 12.85; CREATININE SERUM 0.7 mg/dL (0.6-1.4); GLOM FILT RATE Estimated 103.2 mL/min (>60); POTASSIUM 3.7 mmol/L (3.5-5.1); PROTEIN TOTAL SERUM 6.7 g/dL (6.0-8.3)
== END 2017-06-22 11:00 | disposition home or self-care (01) | DRG 885 ==
LOC: P2L 14:21
PROVIDERS: Psychiatry & Neurology Psychiatry
DX: F31.4 Bipolar disorder, current episode depressed, severe, without psychotic features (principal); M32.9 Systemic lupus erythematosus, unspecified; I10 Essential (primary) hypertension; J44.9 Chronic obstructive pulmonary disease, unspecified; Z88.2 Allergy status to sulfonamides; F17.200 Nicotine dependence, unspecified, uncomplicated
CPT/HCPCS: 80053; 80307; 81003; 84703; 85025